=== PATIENT | female | born 1960 | race Caucasian/White ===

== ENCOUNTER 2016-09-23 08:58 | Day surgery (SDC) | payer OTHER ==
[2016-09-16 15:24] VITALS: BMI 34.3
[~2016-09-23 08:58] MED LIST: LACTATED RINGERS 1,000 ML IV SCH
[2016-09-23 09:36] VITALS: TEMP 98.2
[2016-09-23] MEDS ORDERED: LIDOCAINE 1% 20 ML VIAL (10MG/ML) FOR IV START SQ ONE (09:37)
[2016-09-23] MEDS ORDERED: LACTATED RINGERS 1,000 ML IV ONE (09:38)
[2016-09-23 09:43] LABS: Glucose,Whole Blood 223 mg/dL (75-99)
[2016-09-23] MEDS ORDERED: MIDAZOLAM 2 MG/2 ML VIAL ONE (10:19)
[2016-09-23] MEDS ORDERED: TRIAMCINOLONE ACETONIDE 40 MG/ML 1 ML VIAL ONE (10:19)
[2016-09-23] MEDS ORDERED: fentaNYL (PF) 50 MCG/ML 2 ML AMP ONE (10:19)
[2016-09-23] MEDS ORDERED: BUPIVACAINE (PF) 0.25% 30 ML VIAL ONE (10:19)
--- NOTE | 2016-09-23 10:44 | P.PCN ---
Date of Procedure: 09/23/16 Preoperative Diagnosis: Bilateral knee joint osteoarthritis Postoperative Diagnosis: Same as above Procedure(s) Performed: Implants: Anesthesia: MAC Surgeon: Ryley Thompson Pathology: none sent Condition: stable Disposition: PACU Indications for Procedure: Operative Findings: Description of Procedure: The patient was seen in the preop holding area consent was obtained. The patient was given the option of having only one side done today because of possibility of increasing pain if it is done on both sides but she preferred to have both sides done today. She was brought into the procedure room and placed in supine position skin was prepped with ChloraPrep and then the entry site was localized with lidocaine 1% using 25-gauge needle. I did the medial approach to axis the knee joint on both sides and I used 22- gauge 1-1/2 inch needle for that. The needle was introduced on the medial aspect of the patella at the junction between the upper and middle third and into horizontally towards the knee joints. Then I injected 5 MLS of Marcaine 0.5% +40 mg of Kenalog in each needle joint. Patient tolerated procedure well.
[2016-09-23 10:57] VITALS: RESP 24
[2016-09-23] MEDS ORDERED: IV FLUID CONTINUATION 1,000 ML IV ONE (10:58)
[2016-09-23 11:14] VITALS: BP 115/82; PULSE 103
== END 2016-09-23 11:17 | disposition home or self-care (01) ==
LOC: ORPAIN 08:58
PROVIDERS: ATTEND Anesthesiology
DX: M17.0 Bilateral primary osteoarthritis of knee (principal)
CPT/HCPCS: 20610; J2250; J3301; J3010

== ENCOUNTER → 2016-10-29 | Outpatient (CLI) | payer OTHER ==
[2016-10-29 15:12] VITALS: BP 107/65; PULSE 105; RESP 16; TEMP 97.8
--- NOTE | 2016-10-29 15:31 | P.PN ---
Progress Note - Text This is a 56-year-old female with history of bilateral knee osteoarthritis lumbar and cervical spondylosis without myelopathy. The patient had bilateral knee joint steroid injection about a month ago on her knee pain has improved significantly now she can do more activities as she states and walk for longer distances. Now she feels more her lower back and neck pain however she would like us to address her lower back pain today. She does have axial lower back pain with radiation only to the hips she does have significant tenderness in the lumbar paravertebral area bilaterally and also in the cervical paravertebral area on the lower part of her neck. Facet loading test is positive for the lumbar spine. I will increase the patient's tramadol to 3 pills a day and I will switch her from morbid to Motrin 600 mg twice a day. I will schedule the patient to have lumbar medial branch block bilaterally under fluoroscopic guidance however I prefer not to use any steroids for this procedure given the patient history of pain and not to obscure the results of this diagnostic procedure. The procedure was explained to the patient and her questions were answered.
== END | disposition home or self-care (01) ==
LOC: PNWHC3 13:16
PROVIDERS: ATTEND Anesthesiology
DX: M54.5 Low back pain (principal); M17.0 Bilateral primary osteoarthritis of knee; M47.812 Spondylosis without myelopathy or radiculopathy, cervical region
CPT/HCPCS: 99211

== ENCOUNTER 2016-11-20 08:19 | Day surgery (SDC) | payer OTHER ==
[2016-11-19 11:18] VITALS: BMI 33.6
[2016-11-20 08:37] VITALS: RESP 16; TEMP 97.1
[2016-11-20] MEDS ORDERED: LACTATED RINGERS 1,000 ML IV ONE (08:40)
[2016-11-20] MEDS ORDERED: LIDOCAINE 1% 20 ML VIAL (10MG/ML) FOR IV START INTRADERMA ONE (08:41)
[2016-11-20] MEDS ORDERED: LACTATED RINGERS 1,000 ML IV SCH (09:00)
[2016-11-20] MEDS ORDERED: BUPIVACAINE (PF) 0.5% 30 ML VIAL ONE (09:41)
[2016-11-20] MEDS ORDERED: fentaNYL (PF) 50 MCG/ML 2 ML AMP ONE (09:41)
[2016-11-20] MEDS ORDERED: MIDAZOLAM 2 MG/2 ML VIAL ONE (09:41)
--- NOTE | 2016-11-20 09:57 | P.PCN ---
Date of Procedure: 11/20/16 Surgeon: Garrison Rhodes Pathology: none sent Condition: stable Disposition: PACU Description of Procedure: PREOPERATIVE DIAGNOSIS: L3-L4, L4-L5, and L5-S1 spondylosis without myelopathy and facet arthropathy. POSTOPERATIVE DIAGNOSIS: L3-L4, L4-L5, and L5-S1 spondylosis without myelopathy and facet arthropathy. PROCEDURE DESCRIPTION: Patient presents for L3, L4 and L5 diagnostic medial branch blocks under fluoroscopic guidance. The procedure is performed using fluoroscopic guidance during needle placement to assure proper position and maximize safety. ANESTHESIA: Local with 1% lidocaine; conscious sedation EBL: Minimal PROCEDURE INDICATION: Patient with lumbar facet arthropathy signs and symptoms, here for diagnostic medial branch block. Pt does not take any blood thinning medications. PROCEDURE DESCRIPTION: The patient was seen and identified in the preoperative area. Risks, benefits, complications, and alternatives were discussed with the patient (including but not limited to incomplete pain relief, bleeding, infection, nerve damage, and allergies to medications), the patient agreed to proceed with the procedure and signed the consent after all questions were answered. Patient was taken to the OR and time out was completed to verify proper patient, position, laterality of pain, and allergies. Pt was placed in the prone position and a pillow was placed under the abdomen to reduce lumbar lordosis. The lumbosacral area was prepped and draped in the usual sterile fashion. Using oblique fluoroscopy, the eye of the "Parag dog" of right L4 vertebral body, which corresponds to the path of the medial branch originating from the level above, which is L3 in this case, was identified. Subsequently, a 22-gauge 3.5-inch spinal needle was inserted under fluoroscopic guidance toward the eye of the "Parag dog" of the right L4 vertebral body, corresponding to the junction of the superior articular process and the transverse process of the pedicle of the same level. After needle tip confirmation on lateral view and after negative aspiration for CSF and blood and without paresthesias, 1 mL of a 6 ml solution of 0.5% preservative-free bupivacaine was injected. Subsequently the needle was withdrawn intact and the same procedure was repeated for the right L4, right L5, left L3, left L4, and left L5 medial branches which together with right L3 medial branch correspond to the sensory innervation of the bilateral L3-L4, L4-L5, and L5-S1 facet joints. Needle was withdrawn intact after each injection. At the end of the procedure, the skin was cleansed and bandages were applied. COMPLICATIONS: None. DISPOSITION/PLAN: The patient taken to the recovery area after the procedure in a stable condition for observation. Patient was reexamined prior to discharge and there were no issues. Patient was discharged home, accompanied by an adult, after meeting discharged criteria. Discharge instructions were give to the patient by the staff. Patient was specifically instructed not to drive today and to rest for the rest of the day. Patient will follow up for second lumbar MBB in 4-6 weeks. Avoided steroids today due to pt's severe diabetes. Of note, I also gave two prescriptions for [place] 5/325 #30 (one for November, one for December) as the patient notes that she is having problems sleeping due to pain and tramadol is not helping.
[2016-11-20] MEDS ORDERED: IV FLUID CONTINUATION 1,000 ML IV ONE (10:08)
[2016-11-20 10:24] VITALS: BP 118/80; PULSE 101
--- NOTE | 2016-11-20 13:05 | FL ---
Fluoroscopy HISTORY: Pain 11 seconds fluoroscopy time supplied to the referring clinician. 4 intraoperative C-arm images docum ent the procedure. See dictated report from anesthesia.
== END 2016-11-20 10:39 | disposition home or self-care (01) ==
LOC: ORPAIN 08:19
PROVIDERS: ATTEND Anesthesiology
DX: M47.816 Spondylosis without myelopathy or radiculopathy, lumbar region (principal); M47.817 Spondylosis without myelopathy or radiculopathy, lumbosacral region; M46.96 Unspecified inflammatory spondylopathy, lumbar region; M46.97 Unspecified inflammatory spondylopathy, lumbosacral region; E11.9 Type 2 diabetes mellitus without complications
CPT/HCPCS: 64493; 64494; 64495; 99152; J2250; J3010

== ENCOUNTER 2016-12-30 06:00 | Day surgery (SDC) | payer OTHER ==
[2016-12-25 12:17] VITALS: BMI 33.6
[2016-12-30 07:21] VITALS: RESP 16; TEMP 98.2
[2016-12-30] MEDS: LACTATED RINGERS 1,000 ML IV SCH ×2 (07:27→07:28)
[2016-12-30 07:28] LABS: Glucose,Whole Blood 172 mg/dL (75-99)
[2016-12-30] MEDS ORDERED: MIDAZOLAM 2 MG/2 ML VIAL ONE (07:31)
[2016-12-30] MEDS ORDERED: fentaNYL (PF) 50 MCG/ML 2 ML AMP ONE (07:31)
[2016-12-30] MEDS ORDERED: BUPIVACAINE (PF) 0.5% 30 ML VIAL ONE (07:31)
[2016-12-30] MEDS ORDERED: TRIAMCINOLONE ACETONIDE 40 MG/ML 1 ML VIAL ONE (07:31)
--- NOTE | 2016-12-30 07:56 | P.PCN ---
Date of Procedure: 12/30/16 Procedure(s) Performed: PREOPERATIVE DIAGNOSIS : 1- Lumbar spondylosis with Facet Arthropathy without myelopathy . 2- Lumber degenerative disc disease POSTOPERATIVE DIAGNOSIS: 1- Lumbar spondylosis with Facet Arthropathy without myelopathy . 2- Lumber degenerative disc disease PROCEDURE: Diagnostic bilateral L3 -4 , L4 -5 , and L5-S1 medial branch block under fluoroscopy ANESTHESIA: Local with 1% lidocaine; IV sedation with Versed 4 mg and Fentanyl 100 mcg. EBL: Minimal COMPLICATION: None. IV FLUIDS: 100 mL of normal saline. PROCEDURE INDICATION: Chronic low back pain secondary to Facet arthropathy unresponsive to conservative treatment. PROCEDURE DESCRIPTION: the patient was seen and identified in the preop holding area , risks and benefits and possible complications of the procedure and alternative were discussed with the patient, and the patient agreed to proceed with the procedure and signed the consent IV was started and vital signs monitored during the procedure and fluoroscopy was used to maximize the benefit and accuracy of the needle placement, and sedation was given to decrease patient anxiety, patient was taken to the procedure room and placed in prone position vital signs monitored in the back prepped with chlorhexidine X3 then under strict sterile technique using a right oblique fluoroscopy ,the junction of the transverse process and the superior articulating process of the right L3- 4 , L4- 5, and L5-S1 vertebra which corresponding to the fluoroscopy image of the eye of the Parag dog on the block side for the medial branches and subsequently , after local infiltration of skin and subcu tissuies with lidocaine 1% one mL at each level ,then 22- gauge Quincke-type needles , 3 needle was used , each one of them placed at the junction of the base of the transverse process and the superior articular process at the appropriate level, and the needle was advanced until the periosteum contacted, needle placement confirmed with AP oblique and lateral view and after appropriate needle placement confirmed, and after negative aspiration for heme and CSF and there was no paresthesia 1-1/2 mL of Marcaine 0.5% mixed with 20 mg Kenalog , then half mL injected at each level after negative aspiration the needle subsequently removed and the same procedure repeated for the left side at left side at L3-4, L4- 5 and L5-S1 levels. At the end of the procedure and the needles removed and a bandage applied after the skin was cleaned the cleaning solution patient taken to recovery room in stable condition and monitors in the recovery room for 20-30 minutes and discharged home in stable condition after discharge criteria met and patient will follow up with the pain clinic in 2-4 weeks
[2016-12-30] MEDS ORDERED: IV FLUID CONTINUATION 1,000 ML IV ONE (07:59)
[2016-12-30 08:10] LABS: Glucose,Whole Blood 166 mg/dL (75-99)
[2016-12-30 08:16] VITALS: BP 144/82; PULSE 90
--- NOTE | 2016-12-30 13:08 | FL ---
Fluoroscopy HISTORY: Pain 7 seconds fluoroscopy time supplied to the referring clinician. 4 intraoperative C-arm images docume nt the procedure. See dictated report from anesthesia.
== END 2016-12-30 08:32 | disposition home or self-care (01) ==
LOC: ORPAIN 06:00
PROVIDERS: ATTEND Specialist
DX: G89.29 Other chronic pain (principal); M51.36 Other intervertebral disc degeneration, lumbar region; M47.816 Spondylosis without myelopathy or radiculopathy, lumbar region; M46.96 Unspecified inflammatory spondylopathy, lumbar region; E11.9 Type 2 diabetes mellitus without complications; F17.200 Nicotine dependence, unspecified, uncomplicated
CPT/HCPCS: 64493; 64494; 64495; 99152; J2250; J3301; J3010

== ENCOUNTER → 2017-01-14 | Outpatient (CLI) | payer OTHER ==
[2017-01-14 13:23] VITALS: BP 126/88; PULSE 76; RESP 16; TEMP 98.5
--- NOTE | 2017-01-14 13:51 | P.PN ---
Progress Note - Text This is a 56-year-old lady with a history of neck and lower back pain. The patient did not get good response from the lumbar medial branch block. However she got good response after genitourinary for block on the left knee and she is willing to have these nerves ablated. She has significant tenderness in the cervical paravertebral musculature and also in the trapezius muscles bilaterally. Neuro exam of the upper extremities showed normal and symmetrical muscle strength and normal and symmetrical deep tendon reflexes. She denies any paresthesia in the upper extremities. The patient had an MRI done last year on the cervical spine which showed multilevel of severe neuroforaminal stenosis. I don't have a copy of her lumbar spine MRI with and work on obtaining a copy of it. I will increase her [place] from 5 mg twice a day to 5 mg 3 times a day if needed for her pain. And I will schedule her to have her left genitofemoral nerves residency ablation at the same time we can do a trigger point injection on the cervical paravertebral musculature bilaterally and also in the trapezius muscles bilaterally. The patient mentioned that she needs deeper sedation than the last time when she had her last procedure. We'll see the patient in the clinic 2 months from now.
== END | disposition home or self-care (01) ==
LOC: PNWHC3 12:51
PROVIDERS: ATTEND Anesthesiology
DX: M54.5 Low back pain (principal); M54.2 Cervicalgia
CPT/HCPCS: 99211